=== PATIENT | female | born 1970 | race Caucasian/White ===

== ENCOUNTER 2016-09-20 10:58 | Emergency (ER) | payer MEDICAID ==
[~2016-09-20] VITALS: Ht 157.5 cm; Wt 67.5 kg
[2016-09-20 11:00] VITALS: Ht 157.5 cm; Wt 67.5 kg
[2016-09-20 12:15] LABS: URINE BLOOD (Dip) POC Trace-lysed (NEGATIVE)
--- NOTE | 2016-09-20 12:29 | RADRPT ---
PROCEDURE: CT Brain without contrast. CLINICAL INDICATION: Headaches, extremity numbness and swelling. TECHNIQUE: A CT of the brain was performed on a multidetector CT scanner utilizing axial sections from the skull base through the vertex without contrast. Images were reviewed on a high-resolution [facility] workstation. Exam CTDI = 45.01 mGy and the DLP = 720.23 mGy-cm. One or more of the following dose reduction techniques were used: Automated exposure control Adjustment of the mA and/or kV according to patient size. Use of iterative reconstruction technique. COMPARISON: None available FINDINGS: There is no evidence of intracranial hemorrhage, mass effect or midline shift. No abnormal intra-ax ial or extra-axial fluid collections are seen. The density of the brain is normal and the preston/whit e matter differentiation is well preserved. The osseous structures are unremarkable. Paranasal sin uses are clear. IMPRESSION: 1. No intracranial hemorrhage, mass effect or midline shift. RPTAT: PP .Carol Vidales MD, MD Date Time Electronically viewed and signed by .Carol Vidales MD, on 09/20/2016 12:28 .O/
[2016-09-20] MEDS ORDERED: LORA-441 PO (12:44)
--- NOTE | 2016-09-20 12:57 | ERD ---
ER Documentation Chief Complaint Date/Time DATE: 09/20/16 TIME: 12:55 Chief Complaint anxiety, tearful, body numbness, stiffed neck HPI This 46-year-old female complains of paresthesias or numbness and tingling on her extremities. She has some mild pain in her neck as well. She initially had some numbness in the entire left side of her body but now it is both sides. She denies headache, history of trauma, fevers, chest pain or shortness of breath. She denies dysuria ROS All systems reviewed and are negative except as per history of present illness. Medications Home Meds Active Scripts Lorazepam* (Ativan*) 0.5 Mg Tablet, 0.5 MG PO Q8, #10 TAB Prov:ADRIENNE DANG MD 09/20/16 PMhx/Soc Medical and Surgical Hx: pt denies Medical Hx, pt denies Surgical Hx Hx Alcohol Use: No Hx Substance Use: No Hx Tobacco Use: No Smoking Status: Never smoker Physical Exam Vitals Vital Signs Date Time Temp Pulse Resp B/P Pulse Ox O2 Delivery O2 Flow Rate FiO2 09/20/16 11:00 98.8 92 18 154/73 99 Physical Exam Const: [] Alert, [id number]. Head: Atraumatic Eyes: Normal Conjunctiva ENT: Normal External Ears, Nose and Mouth. Neck: Full range of motion..~ No meningismus. Resp: Clear to auscultation bilaterally Cardio: Regular rate and rhythm, no murmurs Abd: Soft, non tender, non distended. Normal bowel sounds Skin: No petechiae or rashes Back: No midline or flank tenderness Ext: No cyanosis, or edema Neur: Awake and alert. Cranial nerves II through XII grossly intact. No cerebellar signs. Normal gait. Psych: Normal Mood and Affect Results 24 hrs Laboratory Tests Test 09/20/16 12:17 09/20/16 12:39 Bedside Urine pH (LAB) 7.5 Bedside Urine Protein (LAB) Negative Bedside Urine Glucose (UA) Negative Bedside Urine Ketones (LAB) Negative Bedside Urine Blood Trace-lysed Bedside Urine Nitrite (LAB) Negative Bedside Urine Leukocyte Esterase (L Trace Bedside Glucose 98mg/dL Procedures/MDM Urine shows trace leukocytes. HCG is negative. Accu-Chek is normal. Given the left-sided numbness a CT brain was performed which was read as normal by the radiologist. Patient presents with paresthesias which appear to be migratory of uncertain etiology. There is no signs or symptoms of ischemia, central nervous lesions, meningitis, CVA, additional emergent causes of presenting complaints. Patient may have anxiety related to somatic complaints. Patient will be treated with a short course of Ativan and instructed to follow -up with primary care doctor. The patient was stable with no new complaints during the ER course. Clinically, there is no current evidence to suggest meningitis, sepsis, acute abdomen, pneumonia, acute coronary syndrome, pulmonary embolism, or any other emergent condition appearing to require further evaluation or hospitalization. The patient should certainly return for any new or worsening symptoms per the aftercare instructions. They should otherwise follow-up with her primary care doctor for reevaluation this week. We will not treat for UTI given absence of complaints trace leukocytes suspicious for contamination. Departure Diagnosis: Primary Impression: Distal paresthesia Condition: Stable Patient Instructions: Your Body's Response to Anxiety, Paraesthesias Additional Instructions: Examines normal hoy. POSIBLEMENTE DE NERVIOS. Cheque otro vez con alberto doctor primario en el proximo membreno or regresa para mas o nueva simptomas. ADRIENNE DANG MD September 20, 2016 12:57
== END 2016-09-20 13:35 | disposition home or self-care (01) ==
LOC: FTE 10:58
DX: R20.2 Paresthesia of skin (principal)
CPT/HCPCS: 70450; 81003; 82962; Z7502